=== PATIENT | male | born 1950 | race Caucasian/White ===

== ENCOUNTER → 2017-10-09 | Day surgery (SDC) | payer MEDICARE ==
[~2017-10-09] MED LIST: Propofol 200 MG/20 ML SDV IV ONE
[2017-10-09] MEDS: Lactated Ringers 1,000 ML IV SCH (09:23)
--- NOTE | 2017-10-09 13:12 | OR ---
DATE OF OPERATION: 10/09/2017 PREOPERATIVE DIAGNOSIS: 1. EPIGASTRIC PAIN. 2. CONSTIPATION. POSTOPERATIVE DIAGNOSIS: 1. EPIGASTRIC PAIN. 2. CONSTIPATION. SURGEON: Abdiel Birmingham MD PROCEDURE: 1. ESOPHAGOGASTRODUODENOSCOPY WITH BIOPSY X1, NARENDRA. 2. FULL-LENGTH COLONOSCOPY. ANESTHESIA: SHOE MAKER due to schizophrenic disorder. COMPLICATIONS: None. SPECIMEN: 1. Antral NARENDRA. 2. Duodenal biopsy x1. FINDINGS: 1. Full-length EGD. 2. Mild duodenitis, nonspecific without ulceration. 3. Normal full-length colonoscopy with poor prep. RECOMMENDATIONS: Medical followup pending pathology report. INDICATIONS: The patient was in for a routine physical and was having some issues with constipation and epigastric pain. He is due for a colonoscopy. We elected to proceed with the upper and lower scope. DESCRIPTION OF PROCEDURE: The patient was prepped and draped, placed in the left lateral decubitus position. A lubricated Olympus gastroscope was inserted over a bit and advanced to the cricopharyngeus area and easily intubated in the esophagus. The esophageal lining was benign in its entire course. The Z-line was crisp and sharp at 40 cm. No hernia present. No distal esophagitis, stricturing, ulceration, or Cool's changes. The scope intubated into the stomach through the pylorus and into the second portion of the duodenum. The duodenal bulb did have some mild duodenitis changes and no ulcerations. A biopsy was taken. The scope was brought back into the stomach and retroflexed. The upper fundus and cardia were unremarkable. Upon straightening, thorough evaluation of the rest of the fundus and the antrum. The antrum showed no gross abnormalities, polyps, lesions, or peptic ulcer disease. A NARENDRA test was obtained. Air was then suctioned. The scope was removed without complication. A lubricated Olympus colonoscope was then inserted and easily advanced to the cecum. Direct visualization of the ileocecal valve was accomplished. Bowel prep was poor. There was a lot of stool throughout which was thick and it was hard to suction in many of these areas. Adequate visualization was difficult of the entire colon. Upon withdrawal throughout the length of the colon, I could find no signs of any polyps, masses, ulcerations, bleeding sites, and no vascular abnormalities or signs of colitis. There were no significant diverticula. The rectal vault appeared benign. Retroflexion showed no perianal lesions. Air was suctioned. The scope was removed without complication. PARTH/CELSO /[id number]
== END ==
LOC: CC.SDS 09:01
PROVIDERS: ATTEND Family Medicine
DX: R10.13 Epigastric pain (principal); K59.00 Constipation, unspecified; N40.1 Benign prostatic hyperplasia with lower urinary tract symptoms; N39.43 Post-void dribbling; F20.9 Schizophrenia, unspecified; F32.9 Major depressive disorder, single episode, unspecified; M10.9 Gout, unspecified; E78.5 Hyperlipidemia, unspecified; Z79.899 Other long term (current) drug therapy
CPT/HCPCS: 87081; J2704; J7120

== ENCOUNTER 2018-09-09 12:02 | Inpatient (IN) | payer MEDICARE, OTHER ==
[2018-09-09] MEDS ORDERED: Iopamidol 612 MG/ML 100 ML Bottle IVPUSH ONE (12:16)
[2018-09-09 12:21] LABS: CHLORIDE,CL 104 mEq/L (98-106); SODIUM,NA 142 mEq/L (136-145)
[2018-09-09] MEDS: Clindamycin Phosphate in D5W 300 MG in Premix Bag 1 BAG IV SCH ×4 (14:10→19:48)
[2018-09-09] MEDS ORDERED: Enoxaparin 40 MG/0.4 ML Syringe SUBCUT SCH (14:15)
[2018-09-09] MEDS ORDERED: Acetaminophen 500 MG Tab PO PRN (16:37)
[2018-09-09] MEDS: Ibuprofen 200 MG Tab PO PRN (17:10)
[2018-09-09] MEDS: BENZTROPINE 1 MG PO SCH (19:51)
[2018-09-09] MEDS: SIMVASTATIN 40 MG PO SCH (19:51)
[2018-09-09] MEDS: PAROXETINE 20 MG PO SCH (19:51)
[2018-09-09] MEDS: HALOPERIDOL 1 MG PO SCH (19:51)
[2018-09-10] MEDS: Clindamycin Phosphate in D5W 300 MG in Premix Bag 1 BAG IV SCH ×8 (01:40→19:38)
[2018-09-10] MEDS: **PTOM** Pantoprazole 40 MG Tab.CR PO SCH (07:24)
--- NOTE | 2018-09-10 09:17 | PCM.PN ---
- General Info Date of Service: 09/10/18 Admission Dx/Problem (Free Text): Left Facial Cellulitis Subjective Update: Zuhair is a 67 year old male who was admitted to the hospital from the clinic yesterday 09/09/2018 for left facial cellulitis. He had been to the dentist that morning, who then sent him to us for assessment. He reports he is feeling somewhat better this morning. Reports he has less facial pressure. Outline of redness shows improvement in erythema. Patient continues to have some tenderness to left cheek. Did have low grade temperature yesterday, but has been afebrile through the night. Has been tolerating IV clindamycin without issue. He offers no other complaints this morning. Functional Status: Reports: Pain Controlled, Tolerating Diet, Ambulating, Urinating. Denies: New Symptoms - Review of Systems General: Reports: No Symptoms. Denies: Fever, Fatigue, Chills HEENT: Reports: No Symptoms. Denies: Ear Pain, Eye Pain, Headaches, Sinus Congestion, Sore Throat, Visual Changes Pulmonary: Reports: No Symptoms. Denies: Shortness of Breath, Cough, Sputum, Wheezing Cardiovascular: Reports: No Symptoms. Denies: Chest Pain, Dyspnea on Exertion, Edema, Lightheadedness Gastrointestinal: Reports: No Symptoms. Denies: Abdominal Pain, Decreased Appetite, Diarrhea, Nausea, Vomiting Genitourinary: Reports: No Symptoms. Denies: Dysuria, Frequency, Urgency Musculoskeletal: Reports: No Symptoms Skin: Reports: Other (erythema and swelling to left side of face) Neurological: Reports: Tremors. Denies: Confusion, Dizziness Psychiatric: Reports: No Symptoms - Patient Data Vitals - Most Recent: Last Vital Signs Temp 97.2 F 09/10/18 07:50 Pulse 61 09/10/18 07:50 Resp 20 09/10/18 07:50 BP 159/83 H 09/10/18 07:50 Pulse Ox 98 09/10/18 07:50 Weight - Most Recent: 185 lb I&O - Last 24 Hours: Intake & Output 09/09/18 09/10/18 09/10/18 22:59 06:59 14:59 Intake Total 50 50 Balance 50 50 Lab Results Last 24 Hours: Laboratory Results - last 24 hr 09/09/18 09/09/18 09/10/18 Range/Units 12:06 12:06 07:00 WBC 8.0 4.9 L (5.0-10.0) 10^3/uL RBC 4.68 4.30 L (4.50-6.00) 10^6/uL Hgb 14.8 13.6 L (14.0-18.0) g/dL Hct 41.9 38.7 L (40.0-54.0) % MCV 89.5 90.0 (82.0-94.0) fL MCH 31.6 31.6 (27.0-32.0) pg MCHC 35.3 35.1 (33.0-38.0) g/dL RDW Coeff of Sandra 12.8 12.9 (11.0-15.0) % Plt Count 122 L 84 L (150-400) 10^3/uL Neut % (Auto) 78.9 68.2 (35-85) % Lymph % (Auto) 13.7 20.5 (10-55) % Dickey % (Auto) 6.8 9.3 (0-16) % Eos % (Auto) 0.5 1.8 (0-5) % Baso % (Auto) 0.1 0.2 (0-3) % Neut # (Auto) 6.28 3.36 (1.80-7.00) 10^3/uL Lymph # (Auto) 1.09 1.01 (1.00-4.80) 10^3/uL Dickey # (Auto) 0.54 0.46 (0.00-0.80) 10^3/uL Eos # (Auto) 0.04 0.09 (0.00-0.45) 10^3/uL Baso # (Auto) 0.01 0.01 10^3/uL Sodium 142 (136-145) mEq/L Potassium 3.7 (3.5-5.0) mEq/L Chloride 104 (98-106) mEq/L Carbon Dioxide 31 (21-32) mmol/L BUN 7 (7-18) mg/dL Creatinine 0.8 (0.7-1.3) mg/dL Est Cr Clr Drug Dosing TNP Estimated GFR (MDRD) > 60 (>=60) mL/min Glucose 110 H D (75-99) mg/dL Calcium 8.8 (8.4-10.1) mg/dL C-Reactive Protein 1.0 H (0.2-0.8) mg/dL 09/10/18 Range/Units 07:00 WBC (5.0-10.0) 10^3/uL RBC (4.50-6.00) 10^6/uL Hgb (14.0-18.0) g/dL Hct (40.0-54.0) % MCV (82.0-94.0) fL MCH (27.0-32.0) pg MCHC (33.0-38.0) g/dL RDW Coeff of Sandra (11.0-15.0) % Plt Count (150-400) 10^3/uL Neut % (Auto) (35-85) % Lymph % (Auto) (10-55) % Dickey % (Auto) (0-16) % Eos % (Auto) (0-5) % Baso % (Auto) (0-3) % Neut # (Auto) (1.80-7.00) 10^3/uL Lymph # (Auto) (1.00-4.80) 10^3/uL Dickey # (Auto) (0.00-0.80) 10^3/uL Eos # (Auto) (0.00-0.45) 10^3/uL Baso # (Auto) 10^3/uL Sodium (136-145) mEq/L Potassium (3.5-5.0) mEq/L Chloride (98-106) mEq/L Carbon Dioxide (21-32) mmol/L BUN (7-18) mg/dL Creatinine (0.7-1.3) mg/dL Est Cr Clr Drug Dosing Estimated GFR (MDRD) (>=60) mL/min Glucose (75-99) mg/dL Calcium (8.4-10.1) mg/dL C-Reactive Protein 3.3 H (0.2-0.8) mg/dL Med Orders - Current: Current Medications Acetaminophen (Tylenol Extra Strength) 500 - 1,000 mg PO Q6H PRN PRN Reason: Pain/Fever Benztropine Mesylate (Cogentin) 0.5 mg PO BEDTIME JOSIE Last Admin: 09/09/18 19:51 Dose: 0.5 mg Haloperidol (Haldol) 5 mg PO BEDTIME JOSIE Last Admin: 09/09/18 19:51 Dose: 5 mg Clindamycin Phosphate 300 mg/ (Premix) 50 mls @ 100 mls/hr IV Q6H [facility] Last Admin: 09/10/18 07:24 Dose: 100 mls/hr Ibuprofen (Motrin) 600 mg PO Q6H PRN PRN Reason: Pain/Fever Last Admin: 09/09/18 17:10 Dose: 600 mg Pantoprazole Sodium (Protonix) 40 mg PO DAILY [facility] Last Admin: 09/10/18 07:24 Dose: 40 mg Paroxetine HCl (Paxil) 20 mg PO BEDTIME [facility] Last Admin: 09/09/18 19:51 Dose: 20 mg Simvastatin (Zocor) 40 mg PO BEDTIME [facility] Last Admin: 09/09/18 19:51 Dose: 40 mg Discontinued Medications Enoxaparin Sodium (Lovenox) 40 mg SUBCUT DAILY@1200 [facility] Last Admin: 09/09/18 14:36 Dose: Not Given Iopamidol (Isovue-300 (61%)) 100 ml IVPUSH ONETIME ONE Stop: 09/09/18 12:17 Last Admin: 09/09/18 12:49 Dose: 100 ml - Exam Quality Assessment: DVT Prophylaxis General: Alert, Oriented, No Acute Distress HEENT: Pupils Equal, Pupils Reactive, EOMI, Mucous Membr. Moist/Barling Neck: Supple Lungs: Clear to Auscultation, Normal Respiratory Effort Cardiovascular: Regular Rate, Regular Rhythm GI/Abdominal Exam: Normal Bowel Sounds, Soft, Non-Tender, No Organomegaly, No Distention, No Abnormal Bruit, No Mass, Pelvis Stable Extremities: Normal Inspection, Normal Range of Motion, Non-Tender, No Pedal Edema, Normal Capillary Refill Skin: Warm, Dry, Intact, Other (erythema and swelling to left side of face, marked improvement from 09/09/2018, area of erythema outlined, mild tenderness to left cheek with palpation) Wound/Incisions: No Drainage, Erythema Improving Neurological: No New Focal Deficit Psy/Mental Status: Alert, Normal Affect, Normal Mood - Problem List & Annotations (1) Facial cellulitis SNOMED Code(s): 767918640 Code(s): L03.211 - CELLULITIS OF FACE Status: Acute Current Visit: Yes - Problem List Review Problem List Initiated/Reviewed/Updated: Yes - My Orders Last 24 Hours: My Active Orders 09/09/18 14:00 Clindamycin Phosphate in D5W [Cleocin in D5W] 300 mg Premix Bag 1 bag IV Q6H 09/09/18 14:12 Patient Status [ADT] Routine Oxygen Therapy [RC] .PRN Up ad Jazzmine [RC] .PRN Vital Signs [RC] 0000,0400,0800,1200,1600,2000 Resuscitation Status Routine 09/09/18 14:13 Pulse Oximetry [RC] .PRN 09/09/18 14:45 Antiembolic Devices [RC] 1000,2200 09/09/18 16:37 Acetaminophen [Tylenol Extra Strength] 500 - 1,000 mg PO Q6H PRN 09/09/18 16:39 Ibuprofen [Motrin] 600 mg PO Q6H PRN 09/09/18 20:00 Benztropine [Cogentin] 0.5 mg PO BEDTIME Haloperidol [Haldol] 5 mg PO BEDTIME PARoxetine [Paxil] 20 mg PO BEDTIME Simvastatin [Zocor] 40 mg PO BEDTIME 09/09/18 Dinner Regular Diet [DIET] 09/10/18 08:00 Pantoprazole [ProTONIX] 40 mg PO DAILY - Assessment Assessment:: Left Sided Facial Cellulitis - Plan Plan:: WBC improved to 4.9 today. CRP increased from 1.0 to 3.3. Has been afebrile throughout the night. Erythema and swelling improved from yesterday. Patient reports less pressure and pain to left side of face. Will continue with IV clindamycin. Anticipate discharge home tomorrow on oral antibiotics. Dr. Birmingham saw and examined patient and is agreeable with plan.
[2018-09-10] MEDS: HALOPERIDOL 1 MG PO SCH (19:39)
[2018-09-10] MEDS: SIMVASTATIN 40 MG PO SCH (19:39)
[2018-09-10] MEDS: PAROXETINE 20 MG PO SCH (19:39)
[2018-09-10] MEDS: BENZTROPINE 1 MG PO SCH (19:39)
[2018-09-10] MEDS: Ibuprofen 200 MG Tab PO PRN (20:59)
[2018-09-11] MEDS: Clindamycin Phosphate in D5W 300 MG in Premix Bag 1 BAG IV SCH ×8 (01:00→19:56)
[2018-09-11] MEDS: **PTOM** Pantoprazole 40 MG Tab.CR PO SCH (07:56)
--- NOTE | 2018-09-11 14:17 | PN ---
DATE: 09/11/2018 S: Zuhair is a 67-year-old male who was admitted to the hospital on the 09/09 with concerns of left facial cellulitis. He underwent a CT scan at that time that did not show any periorbital cellulitis. He was at the dentist that morning in which they did send him over for further evaluation. He has made significant improvement with some redness to the left maxillary and zygomatic arch area. He states that he ended up having a fall yesterday evening, did not lose consciousness; however, it was unwitnessed. Nursing staff did do neuro checks q.15 minutes and then went to every hour in which through the night, they did not notice any changes per se. He states that he does not really have any headaches today. He has little bit tenderness in the left temporal area. Nursing staff was concerned that he does have some unsteady gait. However, he does have a strong past neurological history with a previous history of stroke. Otherwise, he states overall he is feeling well. He has no complaints. No vision changes. No other neurological deficits or any changes during his time in the emergency room. O: VITAL SIGNS: Blood pressure is 142/86; temp of 97.3, respirations 20, O2 is 97% on room air with a pulse of 69. GENERAL: Pleasant, cooperative male. He is answering all questions appropriately. He is sitting in a recliner, having normal conversation with me. HEENT: Head does appear to be normocephalic. He does have a little bit of tenderness on the left scientologist area with palpation. I do not feel any deficits per se. Eyes: Extraocular movements are intact and full. Pupils are equal, round, and reactive to light. Nasal mucosa is pink and moist. Oral mucosa is pink and moist. Speech is fluent. He does have a little bit of right lip droop, which is the patient's baseline. LUNGS: Clear to auscultation. I did not hear any adventitious sounds. NECK: Supple. No lymphadenopathy. No midline tenderness. CARDIAC: Regular rate and rhythm. No murmurs are noted. EXTREMITIES: No pedal edema is noted. SKIN: Significant improvement of cellulitis of the left side of the face. There is very minimal redness noted. No warmth to the area. Mild tenderness with palpation. ASSESSMENT: 1. LEFT FACIAL CELLULITIS. 2. FALL. P: We will continue with acute stay at this point in time. We will continue with IV antibiotics. We will get a CT scan of the head to rule out any intracranial condition, secondary to his recent fall. I did discuss with Zuhair, possibly if everything looks okay, then we will look at discharge tomorrow which he is in complete agreement. WARNER/CESLO /[id number]
[2018-09-11] MEDS: PAROXETINE 20 MG PO SCH (19:57)
[2018-09-11] MEDS: HALOPERIDOL 1 MG PO SCH (19:57)
[2018-09-11] MEDS: BENZTROPINE 1 MG PO SCH (19:57)
[2018-09-11] MEDS: SIMVASTATIN 40 MG PO SCH (19:57)
[2018-09-12] MEDS: Clindamycin Phosphate in D5W 300 MG in Premix Bag 1 BAG IV SCH ×4 (01:37→08:00)
[2018-09-12] MEDS: **PTOM** Pantoprazole 40 MG Tab.CR PO SCH (07:55)
--- NOTE | 2018-09-12 10:44 | PCM.DCSUM1 ---
Discharge Summary - Hospital Course HPI Initial Comments: Pt was admitted for facial cellulitis and has been on IV clindamycin. Has been improving and swelling has gone down significantly. Diagnosis: Stroke: No Modified Russel Scale: No Symptoms at All Modified [place] Scale Score: 0 - Discharge Data Discharge Date: 09/12/18 Discharge Disposition: Home, Self-Care 01 Condition: Good - Patient Summary/Data Operative Procedure(s) Performed: none Labs Pending at D/C: none Hospital Course: pt was admitted for facial cellulitis and has been doing well. IV clindamycin was started and the swelling has gone down significantly. He denies any pain and is up and around in halls. - Patient Instructions Diet: Regular Diet as Tolerated Activity: As Tolerated Notify Provider of: Fever, Increased Pain, Swelling and Redness, Drainage - Discharge Plan *PRESCRIPTION DRUG MONITORING PROGRAM REVIEWED*: Not Applicable *COPY OF PRESCRIPTION DRUG MONITORING REPORT IN PATIENT LAXMI: Not Applicable Home Medications: Home Meds Benztropine Mesylate 0.5 mg PO BEDTIME 01/29/14 [History] Haloperidol 5 mg PO BEDTIME 01/29/14 [History] PARoxetine HCl [Paroxetine HCl] 20 mg PO BEDTIME 01/29/14 [History] Simvastatin 40 mg PO BEDTIME 01/29/14 [History] Pantoprazole Sodium 40 mg PO DAILY 08/12/18 [History] Oxygen Therapy Mode: Room Air - Discharge Summary/Plan Comment DC Time >30 min.: Yes - General Info Date of Service: 09/12/18 Functional Status: Reports: Pain Controlled - Review of Systems General: Denies: Fever, Weakness HEENT: Reports: Other (mild swelling to the left cheek.) Pulmonary: Reports: No Symptoms Cardiovascular: Reports: No Symptoms Gastrointestinal: Reports: No Symptoms Musculoskeletal: Reports: No Symptoms - Patient Data Vitals - Most Recent: Last Vital Signs Temp 98.7 F 09/12/18 08:00 Pulse 76 09/12/18 08:00 Resp 20 09/12/18 08:00 BP 157/84 H 09/12/18 08:00 Pulse Ox 97 09/12/18 08:00 Weight - Most Recent: 185 lb I&O - Last 24 hours: Intake & Output 09/11/18 09/12/18 09/12/18 22:59 06:59 14:59 Intake Total 50 50 Balance 50 50 Med Orders - Current: Current Medications Acetaminophen (Tylenol Extra Strength) 500 - 1,000 mg PO Q6H PRN PRN Reason: Pain/Fever Last Admin: 09/10/18 19:40 Dose: 1,000 mg Benztropine Mesylate (Cogentin) 0.5 mg PO BEDTIME [facility] Last Admin: 09/11/18 19:57 Dose: 0.5 mg Haloperidol (Haldol) 5 mg PO BEDTIME JOSIE Last Admin: 09/11/18 19:57 Dose: 5 mg Clindamycin Phosphate 300 mg/ (Premix) 50 mls @ 100 mls/hr IV Q6H JOSIE Last Admin: 09/12/18 08:00 Dose: 100 mls/hr Ibuprofen (Motrin) 600 mg PO Q6H PRN PRN Reason: Pain/Fever Last Admin: 09/10/18 20:59 Dose: 600 mg Pantoprazole Sodium (Protonix) 40 mg PO DAILY [facility] Last Admin: 09/12/18 07:55 Dose: 40 mg Paroxetine HCl (Paxil) 20 mg PO BEDTIME [facility] Last Admin: 09/11/18 19:57 Dose: 20 mg Simvastatin (Zocor) 40 mg PO BEDTIME [facility] Last Admin: 09/11/18 19:57 Dose: 40 mg Discontinued Medications Enoxaparin Sodium (Lovenox) 40 mg SUBCUT DAILY@1200 [facility] Last Admin: 09/09/18 14:36 Dose: Not Given Iopamidol (Isovue-300 (61%)) 100 ml IVPUSH ONETIME ONE Stop: 09/09/18 12:17 Last Admin: 09/09/18 12:49 Dose: 100 ml - Exam General: Reports: Alert, Oriented HEENT: Reports: Other (mild swelling that is not painful or warm or red to the left side of cheek. States that it is much less than previously noted.) Neck: Reports: Supple Lungs: Reports: Clear to Auscultation, Normal Respiratory Effort Cardiovascular: Reports: Regular Rate, Regular Rhythm GI/Abdominal Exam: Normal Bowel Sounds, Soft, Non-Tender Extremities: No Pedal Edema, Normal Capillary Refill Skin: Reports: Warm, Dry Neurological: Reports: No New Focal Deficit Psy/Mental Status: Reports: Alert, Normal Affect
[2018-09-12] MEDS ORDERED: Take Home: Clindamycin HCl 150 MG Cap, 6 Cap Pack PO ONE (12:18)
[2018-09-12] MEDS ORDERED: Clindamycin HCl 150 MG Cap PO ONE (13:24)
== END 2018-09-12 13:25 | disposition home or self-care (01) | DRG 603 ==
LOC: CC.MS 12:02 → UNDOADMOB 12:02 → OBSVTOIN 14:12 → CC.MS 14:12 → INTOOBSV 14:12 → OBSVTOIN 09-11 16:17 → UNDODISIN 09-12 13:25
PROVIDERS: ADMIT Nurse Practitioner Family; ATTEND Family Medicine
DX: L03.211 Cellulitis of face (principal); E78.5 Hyperlipidemia, unspecified; K04.7 Periapical abscess without sinus; F20.9 Schizophrenia, unspecified; R26.81 Unsteadiness on feet; Z90.49 Acquired absence of other specified parts of digestive tract; Z87.891 Personal history of nicotine dependence
CPT/HCPCS: 36415; 70450; 70487; 80048; 85025; 86140; 96365; 96366; 96376; 99219; 99225; A9270-GY; G0378; G0379; J3490; Q9967

== ENCOUNTER 2018-11-09 11:26 | Emergency (ER) | payer MEDICARE, OTHER ==
--- NOTE | 2018-11-09 12:53 | EDM.PDOC ---
ED HPI GENERAL MEDICAL PROBLEM - General Chief Complaint: General Stated Complaint: TROUBLE W/BALANCE Time Seen by Provider: 11/09/18 11:40 Source of Information: Reports: Patient, Family History Limitations: Reports: No Limitations - History of Present Illness INITIAL COMMENTS - FREE TEXT/NARRATIVE: Zuhair is a 68 year old male who presents to the ED with family with complaints of ongoing unsteady gait. Family report that he was walking from his apartment across town to the grocery store this morning when she came upon him on his walk back. She reports he was barely able to walk and was so weak he was almost falling to his knees. She reports he was in tears stating that "nobody cares about him enough to even stop and help when he can't even walk." He reports he is scared to drive so quit driving about 2 weeks ago. Reports he needed to get groceries so attempted to walk to grocery store. He reports that he feels better after resting. This occurred about 4 hours prior to ED presentation. Family report they then took him to [facility] to see what services they could get and they recommended he be seen and evaluated. He has had prior workup for unsteady gait, including Lexiscan, Ct head, MRI brain. Does have schizophrenia as well as TBI a number of years ago. He has had ongoing tremors of BUE. Feels these are at baseline, where they have been for a number of years. Denies any pain and does not offer any complaints. Duration: Resolved Prior to Arrival Location: Reports: Generalized Associated Symptoms: Reports: Weakness. Denies: Confusion, Chest Pain, Cough, cough w sputum, Diaphoresis, Fever/Chills, Headaches, Loss of Appetite, Malaise , Nausea/Vomiting, Rash, Seizure, Shortness of Breath, Syncope - Related Data Allergies Allergy/AdvReac Type Severity Reaction Status Date / Time dust Allergy Sneezing Uncoded 11/09/18 11:41 Home Meds: Home Meds Benztropine Mesylate 0.5 mg PO BEDTIME 01/29/14 [History] Haloperidol 5 mg PO BEDTIME 01/29/14 [History] PARoxetine HCl [Paroxetine HCl] 20 mg PO BEDTIME 01/29/14 [History] Simvastatin 40 mg PO BEDTIME 01/29/14 [History] Pantoprazole Sodium 40 mg PO DAILY 08/12/18 [History] Clindamycin HCl 300 mg PO QID PRN 11/09/18 [History] Fenofibrate 160 mg PO DAILY 11/09/18 [History] Past Medical History Cardiovascular History: Reports: High Cholesterol, [place] Gastrointestinal History: Reports: GERD Musculoskeletal History: Reports: Other (See Below) Other Musculoskeletal History: tremors Neurological History: Reports: Brain Injury, TIA Other Neuro History: Brain injury at age 3 Psychiatric History: Reports: Depression, Schizophrenia - Past Surgical History GI Surgical History: Reports: Appendectomy Social & Family History - Tobacco Use Smoking Status *Q: Former Smoker Used Tobacco, but Quit: Yes Month/Year Tobacco Last Used: 30 - Caffeine Use Caffeine Use: Reports: Coffee ED ROS GENERAL - Review of Systems Review Of Systems: ROS reveals no pertinent complaints other than HPI. ED EXAM, GENERAL - Physical Exam Exam: See Below Exam Limited By: No Limitations General Appearance: Alert, WD/WN, No Apparent Distress Eye Exam: Bilateral Eye: EOMI, Normal Fundi, Normal Inspection, PERRL Head: Atraumatic, Normocephalic Neck: Normal Inspection, Supple, Non-Tender, Full Range of Motion Respiratory/Chest: No Respiratory Distress, Lungs Clear, Normal Breath Sounds, No Accessory Muscle Use, Chest Non-Tender Cardiovascular: Normal Peripheral Pulses, Regular Rate, Rhythm, No Edema, No Gallop, No JVD, No Murmur, No Rub Peripheral Pulses: 2+: Radial (L), Radial (R), Dorsalis Pedis (L), Dorsalis Pedis (R) GI/Abdominal: Normal Bowel Sounds, Soft, Non-Tender, No Organomegaly, No Distention, No Abnormal Bruit, No Mass Back Exam: Normal Inspection, Full Range of Motion, NT Extremities: Normal Inspection, Normal Range of Motion, Non-Tender, No Pedal Edema, Normal Capillary Refill, Other (resting tremor BUE) Neurological: Alert, Oriented, CN II-XII Intact, Normal Cognition, Normal Gait ( steady in ED), Normal Reflexes, No Motor/Sensory Deficits Psychiatric: Anxious Skin Exam: Warm, Dry, Intact, Normal Color, No Rash Lymphatic: No Adenopathy Course - Vital Signs Last Recorded V/S: Last Vital Signs Temp 97.3 F 11/09/18 11:34 Pulse 90 11/09/18 11:34 Resp 18 11/09/18 11:34 BP 138/84 11/09/18 11:34 Pulse Ox 99 11/09/18 11:34 - Orders/Labs/Meds Orders: Active Orders 24 hr Category Date Time Status TSH REFLEX TO FREE T4 [CHEM] Stat Lab 11/09/18 11:45 Received Labs: Laboratory Tests 11/09/18 11/09/18 11/09/18 Range/Units 11:37 11:45 11:45 WBC 6.2 (5.0-10.0) 10^3/uL RBC 4.96 (4.50-6.00) 10^6/uL Hgb 15.5 (14.0-18.0) g/dL Hct 43.2 (40.0-54.0) % MCV 87.1 (82.0-94.0) fL MCH 31.3 (27.0-32.0) pg MCHC 35.9 (33.0-38.0) g/dL RDW Coeff of Sandra 13.0 (11.0-15.0) % Plt Count 147 L (150-400) 10^3/uL Neut % (Auto) 71.5 (35-85) % Lymph % (Auto) 19.8 (10-55) % Dickenson % (Auto) 8.1 (0-16) % Eos % (Auto) 0.6 (0-5) % Baso % (Auto) 0 (0-3) % Neut # (Auto) 4.44 (1.80-7.00) 10^3/uL Lymph # (Auto) 1.23 (1.00-4.80) 10^3/uL Dickenson # (Auto) 0.50 (0.00-0.80) 10^3/uL Eos # (Auto) 0.04 (0.00-0.45) 10^3/uL Baso # (Auto) 0.00 10^3/uL POC Sodium 139 (138-146) mmol/L POC Potassium 4.0 (3.5-4.9) mmol/L POC Chloride 102 (98-109) mmol/L POC Total CO2 21 (21-32) mmol/L POC BUN 15 (8-26) mg/dL POC Creatinine 1.1 (0.6-1.3) mg/dL POC Glucose 87 (70-99) mg/dL POC WB Ioniz Calcium 1.3 (1.12-1.32) Urine Color Yellow (YELLOW) Urine Appearance Clear (CLEAR) Urine pH 6.5 (4.5-8.0) Ur Specific [place] 1.010 (1.003-1.020) Urine Protein Negative (NEGATIVE) mg/dL Urine Glucose (UA) Negative (NEGATIVE) mg/dL Urine Ketones Negative (NEGATIVE) mg/dL Urine Occult Blood Trace-intact H (NEGATIVE) Urine Nitrite Negative (NEGATIVE) Urine Bilirubin Negative (NEGATIVE) Urine Urobilinogen 0.2 (0.2-1.0) EU/dL Ur Leukocyte Esterase Negative (NEGATIVE) Urine RBC 0-5 (0-5) /HPF Urine WBC Not seen (0-5) /HPF - Re-Assessments/Exams Free Text/Narrative Re-Assessment/Exam: Discussed normal lab workup with patient and family. Recommended PT evaluation for balance. Apparently was set up by Dr. Birmingham back in September to be seen by PT but patient never came to appointment. Discussed services available to patient in our area. Family reports they would like him to ride the Transit and get Meals on Wheels. Departure - Departure Time of Disposition: 12:41 Disposition: Home, Self-Care 01 Condition: Good Clinical Impression: Unsteady gait, Tremor of both hands - Discharge Information *PRESCRIPTION DRUG MONITORING PROGRAM REVIEWED*: Not Applicable *COPY OF PRESCRIPTION DRUG MONITORING REPORT IN PATIENT LAXMI: Not Applicable Instructions: Fall Prevention in the Home, Adult, [id number] Referrals: PCP,Unknown [Primary Care Provider] - Forms: ED Department Discharge Additional Instructions: - Avoid walking long distances - Follow up with Physical Therapy tomorrow 11/10/2018 at 10 am for balance assessment - Family/[facility] to arrange for Meals on Wheels and Transit Bus - Follow up with Dr. Birmingham for recheck if symptoms worsen or do not improve - My Orders Last 24 Hours: My Active Orders 11/09/18 11:45 TSH REFLEX TO FREE T4 [CHEM] Stat - Assessment/Plan Last 24 Hours: My Active Orders 11/09/18 11:45 TSH REFLEX TO FREE T4 [CHEM] Stat
== END 2018-11-09 12:50 | disposition home or self-care (01) ==
LOC: CC.ED 11:26
DX: R25.1 Tremor, unspecified (principal); R26.81 Unsteadiness on feet; I25.2 Old myocardial infarction; K21.9 Gastro-esophageal reflux disease without esophagitis; Z79.899 Other long term (current) drug therapy; Z86.73 Personal history of transient ischemic attack (TIA), and cerebral infarction without residual deficits; Z90.49 Acquired absence of other specified parts of digestive tract; Z91.09 Other allergy status, other than to drugs and biological substances; Z87.891 Personal history of nicotine dependence
CPT/HCPCS: 36415; 80047; 81001; 84439; 84443; 85025; 93005; 99284

== ENCOUNTER 2020-12-13 01:31 | Observation (INO) | payer MEDICARE ==
[2020-12-13 02:20] LABS: CHLORIDE,CL 104 mEq/L (98-106); SODIUM,NA 144 mEq/L (136-145)
--- NOTE | 2020-12-13 02:32 | EDM.PDOC ---
ED HPI GENERAL MEDICAL PROBLEM - General Chief Complaint: General Stated Complaint: shaking Time Seen by Provider: 12/13/20 02:00 Source of Information: Reports: Patient, EMS, RN History Limitations: Reports: Altered Mental Status - History of Present Illness INITIAL COMMENTS - FREE TEXT/NARRATIVE: Pt was brought in by EMS after being called by law enforcement. They found him either in the gutter or wandering the street. Pt has history of schizophrenia. He states that he has not taken his evening meds yet. He isn't sure when he took them last. He denies any pain. 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 He is not able to give me history on himself and relates that Dr. Birmingham is his psychiatrist. He remembers that he saw him recently but doesn't remember why. He is very cooperative but his story doesn't all come together. I think he lives in [facility] by himself. When EMS picked him up his BP was 250/ 110. He is talking to himself at times and does not make sense. When reviewing his clinic chart he has never had high BP in the past. When in the ER his BP was 211/110. He is not on any antihypertensives. He denied any chest pain or headaches. States that he can't tell me anything. Requesting to speak to Dr. Birmingham. Onset: Gradual - Related Data Allergies Allergy/AdvReac Type Severity Reaction Status Date / Time dust Allergy Sneezing Uncoded 12/13/20 01:50 Home Meds: Home Meds Benztropine Mesylate 0.5 mg PO BEDTIME 01/29/14 [History] PARoxetine HCl [Paroxetine HCl] 20 mg PO BEDTIME 01/29/14 [History] Simvastatin 40 mg PO BEDTIME 01/29/14 [History] haloperidoL [Haloperidol] 5 mg PO BEDTIME 01/29/14 [History] Pantoprazole Sodium 40 mg PO DAILY 08/12/18 [History] Past Medical History Cardiovascular History: Reports: High Cholesterol, SD Gastrointestinal History: Reports: GERD Musculoskeletal History: Reports: Other (See Below) Other Musculoskeletal History: tremors Neurological History: Reports: Brain Injury, TIA Other Neuro History: Brain injury at age 3 Psychiatric History: Reports: Depression, Schizophrenia - Past Surgical History GI Surgical History: Reports: Appendectomy Social & Family History - Caffeine Use Caffeine Use: Reports: Coffee - Living Situation & Occupation Living situation: Reports: Single, Alone Occupation: Retired ED ROS GENERAL - Review of Systems Review Of Systems: See Below Constitutional: Denies: Fever, Chills, Weakness HEENT: Reports: No Symptoms Respiratory: Reports: No Symptoms Cardiovascular: Reports: No Symptoms GI/Abdominal: Reports: No Symptoms : Reports: No Symptoms Musculoskeletal: Reports: No Symptoms Skin: Reports: No Symptoms Neurological: Denies: Dizziness, Headache, Numbness, Tingling Psychiatric: Reports: Confusion, Other (very cooperative and pleasant. No concept of time and what day or time it is. He talks to himself. He is able to tell me where he lives. Feels that he was patrolling the streets to help cdl program coordinator out.) ED EXAM, GENERAL - Physical Exam Exam: See Below Exam Limited By: Altered Mental Status General Appearance: Alert, WD/WN, No Apparent Distress Eye Exam: Right Eye: Other (right eye lid does droop and he states that it has for many years.) Ears: Normal External Exam, Normal Canal, Normal TMs Throat/Mouth: Normal Inspection, Normal Oropharynx, Normal Voice, No Airway Compromise Head: Atraumatic, Normocephalic Neck: Normal Inspection, Supple, Non-Tender Respiratory/Chest: No Respiratory Distress, Lungs Clear, Normal Breath Sounds Cardiovascular: Normal Peripheral Pulses, Regular Rate, Rhythm, No Edema GI/Abdominal: Normal Bowel Sounds, Soft, Non-Tender Extremities: Normal Inspection, Normal Range of Motion, No Pedal Edema, Normal Capillary Refill, Other (Has twitching to both upper extremities. This has been documented at prevoius visits. Is not new for him.) Neurological: Alert, Confused, Disoriented. No: Oriented Skin Exam: Warm, Dry, Intact Course - Vital Signs Last Recorded V/S: Last Vital Signs Temp 97.3 F 12/13/20 12:00 Pulse 63 12/13/20 12:00 Resp 16 12/13/20 12:00 BP 130/80 12/13/20 12:00 Pulse Ox 97 12/13/20 12:00 - Orders/Labs/Meds Orders: Medication Orders Enoxaparin Sodium (Enoxaparin 40 Mg/0.4 Ml Syringe) 40 mg SUBCUT Q24H JOSIE Metoprolol Tartrate (Metoprolol Tartrate 25 Mg Tab) 25 mg PO Q12H JOSIE Benztropine Mesylate 0.5 Mg Tablet Ptom 0.5 mg PO BEDTIME JOSIE Haloperidol 5 Mg (Tablet Ptom) 5 mg PO BEDTIME JOSIE Pantoprazole Sodium (Pantoprazole 40 Mg Tab.Cr Ptom) 40 mg PO ACBREAKFAST JOSIE Paroxetine HCl (Paroxetine 20 Mg Tab Ptom) 20 mg PO BEDTIME JOSIE Potassium Chloride (Potassium Chloride 10 Meq Tab.Er) 20 meq PO BIDMEALS JOSIE Simvastatin (Simvastatin 40 Mg Tab Ptom) 40 mg PO BEDTIME JOSIE Sodium Chloride (Sodium Chloride 0.9% 10 Ml Syringe) 10 ml FLUSH ASDIRECTED PRN PRN Reason: Keep Vein Open Labs: Laboratory Tests 12/13/20 12/13/20 Range/Units 01:55 01:55 WBC 5.4 (4.0-11.0) 10^3/uL RBC 4.43 L (4.50-6.00) x10^6/uL Hgb 13.9 L (14.0-18.0) g/dL Hct 39.1 L (42.0-52.0) % MCV 88.3 (83.0-97.0) fL MCH 31.4 (27.0-32.0) pg MCHC 35.5 (32.0-36.0) g/dL RDW Coeff of Sandra 12.5 (11.0-15.0) % Plt Count 120 L (150-400) 10^3/uL Immature Gran % (Auto) 0.2 (0.0-4.9) % Neut % (Auto) 69.9 (41-71) % Lymph % (Auto) 20.4 L (24-44) % [place] % (Auto) 8.7 (0-10) % Eos % (Auto) 0.4 (0-6) % Baso % (Auto) 0.4 (0-1) % Neut # (Auto) 3.76 (1.80-8.00) x10^3/uL Lymph # (Auto) 1.10 (0.60-5.00) 10^3/uL [place] # (Auto) 0.47 (0.00-1.50) 10^3/uL Eos # (Auto) 0.02 (0.00-1.50) 10^3/uL Baso # (Auto) 0.02 (0.00-0.50) 10^3/uL Immature Gran # (Auto) 0.01 (0.00-0.49) 10^3/uL Sodium 144 (136-145) mEq/L Potassium 2.9 L* D (3.5-5.0) mEq/L Chloride 104 (98-106) mEq/L Carbon Dioxide 24 (21-32) mmol/L BUN 18 (7-18) mg/dL Creatinine 1.1 (0.7-1.3) mg/dL Est Cr Clr Drug Dosing TNP Estimated GFR (MDRD) > 60 (>=60) mL/min Glucose 103 H D (75-99) mg/dL Calcium 9.4 (8.4-10.1) mg/dL Total Bilirubin 2.0 H (0.0-1.0) mg/dL AST 34 (15-37) U/L ALT 28 (12-78) U/L Alkaline Phosphatase 57 (46-116) U/L Total Protein 7.2 (6.4-8.2) g/dL Albumin 4.2 (3.4-5.0) g/dL Meds: Medications Generic Name Dose Route Start Last Admin Trade Name Freq PRN Reason Stop Dose Admin Enoxaparin Sodium 40 mg 12/13/20 20:00 Enoxaparin 40 Mg/0.4 Ml Syringe SUBCUT Q24H JOSIE Metoprolol Tartrate 25 mg 12/13/20 20:00 Metoprolol Tartrate 25 Mg Tab PO Q12H JOSIE Benztropine Mesylate 0.5 mg 12/13/20 20:00 0.5 Mg Tablet PO Ptom BEDTIME JOSIE Haloperidol 5 Mg 5 mg 12/13/20 20:00 Tablet Ptom PO BEDTIME JOSIE Pantoprazole Sodium 40 mg 12/14/20 07:00 Pantoprazole 40 Mg Tab.Cr Ptom PO ACBREAKFAST JOSIE Paroxetine HCl 20 mg 12/13/20 20:00 Paroxetine 20 Mg Tab Ptom PO BEDTIME JOSIE Potassium Chloride 20 meq 12/13/20 17:30 Potassium Chloride 10 Meq Tab.Er PO BIDMEALS JOSIE Simvastatin 40 mg 12/13/20 20:00 Simvastatin 40 Mg Tab Ptom PO BEDTIME JOSIE Sodium Chloride 10 ml 12/13/20 02:58 Sodium Chloride 0.9% 10 Ml Syringe FLUSH ASDIRECTED PRN Keep Vein Open Discontinued Medications Generic Name Dose Route Start Last Admin Trade Name Freq PRN Reason Stop Dose Admin Clonidine HCl 0.1 mg 12/13/20 03:15 12/13/20 03:35 Clonidine 0.1 Mg Tab PO 12/13/20 03:16 0.1 mg NOW ONE Administration Enoxaparin Sodium 30 mg 12/13/20 03:00 12/13/20 03:36 Enoxaparin 30 Mg/0.3 Ml Syringe SUBCUT 30 mg Q24H JOSIE Administration Fenofibrate 160 mg 12/13/20 08:00 12/13/20 07:25 Fenofibrate 160 Mg Tab PO 160 mg DAILY JOSIE Administration Potassium Chloride 20 meq/ 100 mls @ 25 mls/hr 12/13/20 03:01 12/13/20 03:41 Premix IV 12/13/20 07:00 25 mls/hr ONETIME ONE Administration Potassium Chloride 40 meq/ 100 mls @ 25 mls/hr 12/13/20 10:00 12/13/20 10:02 Premix IV 12/13/20 13:59 25 mls/hr ONETIME ONE Administration Metoprolol Tartrate 25 mg 12/13/20 10:00 12/13/20 10:01 Metoprolol Tartrate 25 Mg Tab PO 12/13/20 10:01 25 mg ONETIME ONE Administration Pantoprazole Sodium 40 mg 12/13/20 07:00 12/13/20 07:24 Pantoprazole 40 Mg Tab.Cr PO 40 mg ACBREAKFAST JOSIE Administration - Re-Assessments/Exams Free Text/Narrative Re-Assessment/Exam: 12/13/20 02:40 Labs show hypokalemia and BP is still elevated. Departure - Departure Time of Disposition: 02:49 Disposition: Refer to Observation Condition: Fair Clinical Impression: Hypokalemia, Tremor of both hands, Chronic schizophrenia Hypertension Qualifiers: Hypertension type: primary hypertension Qualified Code(s): I10 - Essential (primary) hypertension - Discharge Information *PRESCRIPTION DRUG MONITORING PROGRAM REVIEWED*: Not Applicable *COPY OF PRESCRIPTION DRUG MONITORING REPORT IN PATIENT LAXMI: Not Applicable - Problem List & Annotations (1) Hypertension SNOMED Code(s): 90579984 Code(s): I10 - ESSENTIAL (PRIMARY) HYPERTENSION Status: Acute Priority: High Current Visit: Yes Qualifiers: Hypertension type: primary hypertension Qualified Code(s): I10 - Essential (primary) hypertension (2) Hypokalemia SNOMED Code(s): 85968082 Code(s): E87.6 - HYPOKALEMIA Status: Acute Priority: High Current Visit: Yes (3) Tremor of both hands SNOMED Code(s): 659349978, 228935977 Code(s): R25.1 - TREMOR, UNSPECIFIED Status: Chronic Priority: Low Current Visit: Yes (4) Chronic schizophrenia SNOMED Code(s): 03954005 Code(s): F20.9 - SCHIZOPHRENIA, UNSPECIFIED Status: Chronic Priority: Low Current Visit: Yes - Problem List Review Problem List Initiated/Reviewed/Updated: Yes - Assessment/Plan Plan: Pt will be admitted observation to Dr. Birmingham. He will be given dose of clonidine to bring his BP down and will monitor. Will give KCL 20 meq IV and recheck labs in the morning.
[2020-12-13] MEDS ORDERED: Sodium Chloride 0.9% 10 ML Syringe FLUSH PRN (02:58)
[2020-12-13] MEDS ORDERED: Enoxaparin 30 MG/0.3 ML Syringe SUBCUT SCH (03:00)
[2020-12-13] MEDS ORDERED: Potassium Chloride 20 MEQ in Premix Bag 1 BAG IV ONE (03:01)
[2020-12-13] MEDS ORDERED: cloNIDine 0.1 MG Tab PO ONE (03:15)
[2020-12-13 06:50] LABS: AMPHETAMINES,URINE NEGATIVE (NEGATIVE); BARBITURATES,URINE NEGATIVE (NEGATIVE); BENZODIAZEPINE,URINE NEGATIVE (NEGATIVE); MDMA (ECSTASY), URINE NEGATIVE (NEGATIVE); METHADONE,URINE NEGATIVE (NEGATIVE); METHAMPHETAMINES,URINE NEGATIVE (NEGATIVE); OPIATES,URINE NEGATIVE (NEGATIVE); OXYCODONE,URINE NEGATIVE (NEGATIVE); PHENCYCLIDINE,URINE NEGATIVE (NEGATIVE); TCA,URINE NEGATIVE (NEGATIVE)
[2020-12-13] MEDS ORDERED: Pantoprazole 40 MG Tab.CR PO SCH (07:00)
[2020-12-13 07:25] LABS: CHLORIDE,CL 108 mEq/L (98-106); SODIUM,NA 143 mEq/L (136-145)
[2020-12-13] MEDS ORDERED: Fenofibrate 160 MG Tab PO SCH (08:00)
[2020-12-13] MEDS ORDERED: Take Home: Pantoprazole 40 MG Tab.CR, 1 Tab Pack PO SCH (08:00)
[2020-12-13] MEDS ORDERED: Metoprolol Tartrate 25 MG Tab PO ONE (10:00)
[2020-12-13] MEDS ORDERED: Potassium Chloride Riders 40 MEQ in Premix Bag 1 BAG IV ONE (10:00)
--- NOTE | 2020-12-13 12:53 | PN ---
DATE: 12/13/2020 S: Mr. Bates is a 70-year-old male admitted last night for hypokalemia. He was tremulous and having an elevated blood pressure. Denied any chest pain or shortness of breath. Fabi admitted him and gave him 1 dose of 20 mEq of KCl. Otherwise, he really has not had any other symptoms. O: GENERAL: When I examine him, he is pleasant, cooperative, appears in no distress. HEENT: Benign. NECK: Veins were nondistended. LUNGS: Sounds are clear. CARDIAC: Tones are regular. ABDOMEN: Soft and nontender. EXTREMITIES: He has no peripheral edema. He has some tremors to the right upper extremity. ASSESSMENT: 1. HYPOKALEMIA. 2. HYPERTENSION. 3. SCHIZOPHRENIA. 4. RIGHT UPPER EXTREMITY TREMORS WITH KNOWN HISTORY OF TARDIVE DYSKINESIA. P: We will get a magnesium level. One was not drawn on admit. We will continue to give IV potassium and start him on an oral dose as well. I am going to put him on metoprolol for his blood pressure today and see how he responds. Once we get his electrolyte abnormalities back in order, he should be stable for outpatient management. PARTH/CELSO /[id number]
[2020-12-13 15:51] LABS: CHLORIDE,CL 108 mEq/L (98-106); SODIUM,NA 142 mEq/L (136-145)
[2020-12-13] MEDS: Potassium Chloride 10 MEQ Tab.ER PO SCH (17:58)
[2020-12-13] MEDS ORDERED: PARoxetine 20 MG Tab **PTOM PO SCH (20:00)
[2020-12-13] MEDS ORDERED: HALOPERIDOL 5 MG PO SCH (20:00)
[2020-12-13] MEDS ORDERED: BENZTROPINE MESYLATE 0.5 MG PO SCH (20:00)
[2020-12-13] MEDS ORDERED: Simvastatin 40 MG Tab **PTOM PO SCH (20:00)
[2020-12-13] MEDS ORDERED: Enoxaparin 40 MG/0.4 ML Syringe SUBCUT SCH (20:00)
[2020-12-13] MEDS: Metoprolol Tartrate 25 MG Tab PO SCH (20:32)
[2020-12-14] MEDS ORDERED: Pantoprazole 40 MG Tab.CR **PTOM PO SCH (07:00)
[2020-12-14] MEDS: Metoprolol Tartrate 25 MG Tab PO SCH (07:58)
[2020-12-14] MEDS: Potassium Chloride 10 MEQ Tab.ER PO SCH (07:58)
[2020-12-14] MEDS ORDERED: Lanolin/Mineral Oil/NaCl/Petrolatum Lotion 177 ML Bottle TOP PRN (08:49)
[2020-12-14 09:01] LABS: CHLORIDE,CL 107 mEq/L (98-106); SODIUM,NA 141 mEq/L (136-145)
--- NOTE | 2020-12-16 06:55 | DISCH ---
ADMISSION DIAGNOSES: 1. Hypokalemia. 2. Hypertension. 3. Schizophrenia. DISCHARGE DIAGNOSIS: 1. HYPOKALEMIA. 2. HYPERTENSION. 3. SCHIZOPHRENIA. HISTORY: The patient is a 70-year-old male with known schizophrenia who was brought in by EMS after being called by Law Enforcement. The patient was out walking in the streets. He had not taken his evening medication for schizophrenia and he was brought to our facility when Fabi Tse saw him with an elevated blood pressure and hypokalemia. He was admitted for control of both. HOSPITAL COURSE: The patient was given IV and oral potassium replacement and that returned to a normal value within 24 hours. His blood pressures were in the 140s to 170 systolic. He was given metoprolol 25 mg b.i.d. and his last blood pressure was 147/71. His vitals have otherwise been fine. Clinically, he looks completely fine and back to his baseline. He is not having any signs of confusion. At this point, we are going to titrate his medicine as an outpatient. I did have a conversation with him at family request about assisted living to make sure medication management was happening and at this time patient is adamant against. I will have Home Health consult for medication monitoring, vital sign evaluation, and mental status monitoring as well. I will see him back in my office in 2 weeks time for mathew MILLER /[id number]
== END 2020-12-14 14:25 | disposition home or self-care (01) ==
LOC: CC.ED 01:31 → CC.MS 02:30 → UNDOADMOB 02:30 → CC.MS 02:58
PROVIDERS: ADMIT Physician Assistant Medical; ATTEND Family Medicine
DX: E87.6 Hypokalemia (principal); I10 Essential (primary) hypertension; F20.9 Schizophrenia, unspecified; E78.00 Pure hypercholesterolemia, unspecified; I25.2 Old myocardial infarction; R25.1 Tremor, unspecified; Z86.73 Personal history of transient ischemic attack (TIA), and cerebral infarction without residual deficits; Z79.899 Other long term (current) drug therapy
CPT/HCPCS: 36415; 80048; 80053; 80305-QW; 81001; 83735; 85025; 96372; 96374; 99285-25; A9270-GY; J1650; J3480

== ENCOUNTER 2022-12-15 11:36 | Inpatient (IN) | payer MEDICARE, MEDICAID ==
[2022-12-15] MEDS ORDERED: Sodium Chloride 0.9% 10 ML Syringe FLUSH PRN (11:52)
[2022-12-15] MEDS ORDERED: Sodium Chloride 0.9% 1,000 ML IV ONE ×2 (11:53→12:34)
[2022-12-15] MEDS ORDERED: Acetaminophen 325 MG Tab PO ONE (11:54)
[2022-12-15 12:10] LABS: BASOPHILS ABSOLUTE AUTO 0.01 10^3/uL (0.00-0.50); BASOPHILS PERCENT AUTO 0.1 % (0-1); HEMATOCRIT 41.2 % (42.0-52.0); HEMOGLOBIN 14.6 g/dL (14.0-18.0); IMMATURE GRAN ABSOLUTE AUTO 0.01 10^3/uL (0.00-0.49); IMMATURE GRAN PERCENT AUTO 0.1 % (0.0-4.9); LYMPHOCYTES PERCENT AUTO 3.1 % (24-44); MEAN CORPUSCULAR HEMOGLOBIN 32.1 pg (27.0-32.0); MEAN CORPUSCULAR HGB CONC 35.4 g/dL (32.0-36.0); MEAN CORPUSCULAR VOLUME 90.5 fL (83.0-97.0); MONOCYTES PERCENT AUTO 4.6 % (0-10); NEUTROPHILS ABSOLUTE AUTO 11.99 x10^3/uL (1.80-8.00); NEUTROPHILS PERCENT AUTO 92.1 % (41-71); PLATELET COUNT,PLT 147 10^3/uL (150-400); RED BLOOD CELL COUNT 4.55 x10^6/uL (4.50-6.00)
[2022-12-15 12:25] LABS: ALBUMIN 4.4 g/dL (3.4-5.0); BILIRUBIN TOTAL 1.4 mg/dL (0.0-1.0); CALCIUM 10.5 mg/dL (8.4-10.1); CREATININE 1.7 mg/dL (0.7-1.3); EST CRCL DRUG DOSING (CG) 39.96 mL/min; LACTIC ACID 3.7 mmol/L (0.4-2.0); MAGNESIUM 2.2 mg/dL (1.8-2.4); POTASSIUM,K 3.8 mEq/L (3.5-5.0); PROTEIN TOTAL,TP 7.8 g/dL (6.4-8.2)
[2022-12-15] MEDS ORDERED: Cefepime 2 GM in Sodium Chloride 0.9% 50 ML IV ONE (12:54)
[2022-12-15 13:23] LABS: APPEARANCE,URINE CLOUDY (CLEAR); BILIRUBIN,URINE SMALL (NEGATIVE); COLOR,URINE ORANGE (YELLOW); GLUCOSE,URINE NEGATIVE (NEGATIVE); KETONES,URINE 15 mg/dL (NEGATIVE); LEUKOCYTE ESTERASE,URINE NEGATIVE (NEGATIVE); NITRITE,URINE NEGATIVE (NEGATIVE); OCCULT BLOOD,URINE MODERATE (NEGATIVE); PH,URINE 5.5 (4.5-8.0); PROTEIN,URINE >=300 mg/dL (NEGATIVE); UROBILINOGEN,URINE 0.2 EU/dL (0.2-1.0)
[2022-12-15] MEDS ORDERED: Docusate Sodium 100 MG Cap PO PRN (13:51)
[2022-12-15] MEDS ORDERED: Polyethylene Glycol 3350 Powder 17 GM Packet PO PRN (13:51)
[2022-12-15] MEDS ORDERED: Acetaminophen 325 MG Tab PO PRN (13:51)
[2022-12-15] MEDS ORDERED: Ondansetron 4 MG/2 ML SDV IV PRN (13:51)
[2022-12-15 13:59] LABS: BACTERIA,URINE FEW /HPF (NOT SEEN); EPITHELIAL CELLS,URINE OCCASIONAL /HPF (NOT SEEN); MUCUS,URINE FEW /HPF (NOT SEEN)
[2022-12-15] MEDS ORDERED: Loratadine 10 MG Tab PO PRN (14:01)
[2022-12-15] MEDS ORDERED: VANCOmycin 1 GM/200 ML 1 GM in Premix Bag 1 BAG IV ONE (14:28)
[2022-12-15] MEDS: Sodium Chloride 0.9% 1,000 ML IV SCH ×2 (15:41→22:34)
[2022-12-15] MEDS ORDERED: HALOPERIDOL 5 MG PO SCH (20:00)
[2022-12-15] MEDS: Pramipexole 0.5 MG Tab PO SCH (20:04)
[2022-12-15] MEDS: PARoxetine 20 MG Tab PO SCH (20:05)
[2022-12-15] MEDS: Metoprolol Succinate 25 MG Tab.ER PO SCH (20:06)
[2022-12-15] MEDS: Mirtazapine 15 MG Tab PO SCH (20:06)
[2022-12-15] MEDS: Simvastatin 40 MG Tab PO SCH (20:07)
[2022-12-15] MEDS: MINERAL OIL EYERT SCH (20:09)
[2022-12-15] MEDS: PETROLATUM WHITE EYERT SCH (20:09)
[2022-12-15] MEDS: Cefepime 2 GM in Sodium Chloride 0.9% 100 ML IV SCH (23:25)
[2022-12-16] MEDS: Sodium Chloride 0.9% 1,000 ML IV SCH ×2 (05:18→12:57)
[2022-12-16] MEDS: Pantoprazole 40 MG Tab.CR PO SCH (06:17)
[2022-12-16 07:43] LABS: BASOPHILS ABSOLUTE AUTO 0.01 10^3/uL (0.00-0.50); BASOPHILS PERCENT AUTO 0.2 % (0-1); EOSINOPHILS ABSOLUTE AUTO 0.04 10^3/uL (0.00-1.50); EOSINOPHILS PERCENT AUTO 0.6 % (0-6); HEMOGLOBIN 11.3 g/dL (14.0-18.0); IMMATURE GRAN ABSOLUTE AUTO 0.01 10^3/uL (0.00-0.49); IMMATURE GRAN PERCENT AUTO 0.2 % (0.0-4.9); LYMPHOCYTES ABSOLUTE AUTO 0.75 10^3/uL (0.60-5.00); LYMPHOCYTES PERCENT AUTO 11.9 % (24-44); MEAN CORPUSCULAR HEMOGLOBIN 33.8 pg (27.0-32.0); MEAN CORPUSCULAR HGB CONC 35.3 g/dL (32.0-36.0); MEAN CORPUSCULAR VOLUME 95.8 fL (83.0-97.0); MONOCYTES PERCENT AUTO 6.3 % (0-10); NEUTROPHILS ABSOLUTE AUTO 5.11 x10^3/uL (1.80-8.00); NEUTROPHILS PERCENT AUTO 80.8 % (41-71); PLATELET COUNT,PLT 109 10^3/uL (150-400); RED BLOOD CELL COUNT 3.34 x10^6/uL (4.50-6.00); WHITE BLOOD CELL COUNT,WBC 6.3 10^3/uL (4.0-11.0)
[2022-12-16 07:44] LABS: BILIRUBIN TOTAL 0.7 mg/dL (0.0-1.0); CALCIUM 8.4 mg/dL (8.4-10.1); CREATININE 0.9 mg/dL (0.7-1.3); EST CRCL DRUG DOSING (CG) 75.48 mL/min; PROTEIN TOTAL,TP 5.4 g/dL (6.4-8.2)
[2022-12-16 07:53] LABS: POTASSIUM,K 4.3 mEq/L (3.5-5.0)
[2022-12-16] MEDS ORDERED: HALOPERIDOL 5 MG PO SCH (08:00)
[2022-12-16] MEDS: Polyethylene Glycol 3350 Powder 17 GM Packet PO SCH (08:13)
[2022-12-16] MEDS: Enoxaparin 40 MG/0.4 ML Syringe SUBCUT SCH (08:14)
[2022-12-16] MEDS: Pramipexole 0.5 MG Tab PO SCH ×2 (08:18→19:49)
[2022-12-16] MEDS: Metoprolol Succinate 25 MG Tab.ER PO SCH ×2 (08:19→19:49)
[2022-12-16] MEDS: Donepezil 5 MG Tab PO SCH (08:19)
[2022-12-16] MEDS: Multivitamin Tab PO SCH (08:19)
[2022-12-16] MEDS: MINERAL OIL EYERT SCH ×2 (08:20→19:52)
[2022-12-16] MEDS: PETROLATUM WHITE EYERT SCH ×2 (08:20→19:52)
[2022-12-16] MEDS ORDERED: VANCOmycin 1 GM/200 ML 1 GM in Premix Bag 1 BAG IV ONE (10:45)
[2022-12-16] MEDS ORDERED: Iopamidol 755 Mg/ML 100 ML Bottle IVPUSH ONE (11:09)
[2022-12-16] MEDS ORDERED: VANCOmycin 1 GM/200 ML 1 GM in Premix Bag 1 BAG IV SCH ×2 (12:00→20:00)
[2022-12-16] MEDS: Cefepime 2 GM in Sodium Chloride 0.9% 100 ML IV SCH (12:52)
[2022-12-16] MEDS: PARoxetine 20 MG Tab PO SCH (19:48)
[2022-12-16] MEDS: Simvastatin 40 MG Tab PO SCH (19:49)
[2022-12-16] MEDS: Mirtazapine 15 MG Tab PO SCH (19:50)
[2022-12-16] MEDS ORDERED: Haloperidol 5 MG Tab PO SCH (20:00)
[2022-12-17] MEDS: Pantoprazole 40 MG Tab.CR PO SCH (06:47)
[2022-12-17] MEDS: Multivitamin Tab PO SCH (07:44)
[2022-12-17] MEDS: Pramipexole 0.5 MG Tab PO SCH (07:44)
[2022-12-17] MEDS: Donepezil 5 MG Tab PO SCH (07:44)
[2022-12-17] MEDS: Polyethylene Glycol 3350 Powder 17 GM Packet PO SCH (07:44)
[2022-12-17 07:45] LABS: ALBUMIN 3.2 g/dL (3.4-5.0); BILIRUBIN TOTAL 0.7 mg/dL (0.0-1.0); CALCIUM 8.7 mg/dL (8.4-10.1); CREATININE 0.9 mg/dL (0.7-1.3); EST CRCL DRUG DOSING (CG) 75.48 mL/min; POTASSIUM,K 3.9 mEq/L (3.5-5.0)
[2022-12-17] MEDS: Metoprolol Succinate 25 MG Tab.ER PO SCH (07:45)
[2022-12-17] MEDS: Enoxaparin 40 MG/0.4 ML Syringe SUBCUT SCH (07:46)
[2022-12-17] MEDS ORDERED: Haloperidol 5 MG Tab PO SCH (08:00)
[2022-12-17 08:13] LABS: BASOPHILS ABSOLUTE AUTO 0.02 10^3/uL (0.00-0.50); BASOPHILS PERCENT AUTO 0.4 % (0-1); HEMATOCRIT 32.5 % (42.0-52.0); HEMOGLOBIN 11.2 g/dL (14.0-18.0); LYMPHOCYTES PERCENT AUTO 17.6 % (24-44); MEAN CORPUSCULAR HEMOGLOBIN 32.2 pg (27.0-32.0); MEAN CORPUSCULAR HGB CONC 34.5 g/dL (32.0-36.0); MEAN CORPUSCULAR VOLUME 93.4 fL (83.0-97.0); MONOCYTES ABSOLUTE AUTO 0.36 10^3/uL (0.00-1.50); NEUTROPHILS ABSOLUTE AUTO 3.74 x10^3/uL (1.80-8.00); PLATELET COUNT,PLT 90 10^3/uL (150-400); RED BLOOD CELL COUNT 3.48 x10^6/uL (4.50-6.00); WHITE BLOOD CELL COUNT,WBC 5.1 10^3/uL (4.0-11.0)
== END 2022-12-17 09:05 | disposition home or self-care (01) | DRG 872 ==
LOC: CC.ED 11:36 → UNDOADMIN 12:58 → CC.MS 12:58
PROVIDERS: ADMIT Nurse Practitioner Family; ATTEND Nurse Practitioner Family
DX: A41.9 Sepsis, unspecified organism (principal); G20 Parkinson's disease; I10 Essential (primary) hypertension; E78.5 Hyperlipidemia, unspecified; F03.90 Unspecified dementia, unspecified severity, without behavioral disturbance, psychotic disturbance, mood disturbance, and anxiety; Z66 Do not resuscitate; F20.9 Schizophrenia, unspecified; E78.00 Pure hypercholesterolemia, unspecified; F39 Unspecified mood [affective] disorder; K74.60 Unspecified cirrhosis of liver; K21.9 Gastro-esophageal reflux disease without esophagitis; Z20.822 Contact with and (suspected) exposure to COVID-19; R79.89 Other specified abnormal findings of blood chemistry; N28.9 Disorder of kidney and ureter, unspecified; B34.9 Viral infection, unspecified; Z87.820 Personal history of traumatic brain injury; Z91.048 Other nonmedicinal substance allergy status; Z79.899 Other long term (current) drug therapy; I25.2 Old myocardial infarction; Z90.49 Acquired absence of other specified parts of digestive tract
CPT/HCPCS: 36415; 51702; 71045; 74178; 80053; 80202; 81001; 83605; 83735; 84484; 85025; 87040; 87804; 87807; 93005; 93010; 96361; 96365; 97161-GP; 99223; 99233; 99239; 99285-25; A9270-GY; J0692; J1650; J3370; J3490; J7030; Q9967; U0002

== ENCOUNTER 2023-01-15 14:35 | Emergency (ER) | payer MEDICARE, MEDICAID ==
[2023-01-15 14:56] LABS: BASOPHILS ABSOLUTE AUTO 0.02 10^3/uL (0.00-0.50); BASOPHILS PERCENT AUTO 0.3 % (0-1); EOSINOPHILS ABSOLUTE AUTO 0.01 10^3/uL (0.00-1.50); EOSINOPHILS PERCENT AUTO 0.1 % (0-6); HEMATOCRIT 40.4 % (42.0-52.0); HEMOGLOBIN 13.9 g/dL (14.0-18.0); IMMATURE GRAN ABSOLUTE AUTO 0.01 10^3/uL (0.00-0.49); IMMATURE GRAN PERCENT AUTO 0.1 % (0.0-4.9); LYMPHOCYTES ABSOLUTE AUTO 0.43 10^3/uL (0.60-5.00); LYMPHOCYTES PERCENT AUTO 5.8 % (24-44); MEAN CORPUSCULAR HGB CONC 34.4 g/dL (32.0-36.0); MEAN CORPUSCULAR VOLUME 92.9 fL (83.0-97.0); MONOCYTES ABSOLUTE AUTO 0.38 10^3/uL (0.00-1.50); MONOCYTES PERCENT AUTO 5.1 % (0-10); NEUTROPHILS ABSOLUTE AUTO 6.55 x10^3/uL (1.80-8.00); NEUTROPHILS PERCENT AUTO 88.6 % (41-71); PLATELET COUNT,PLT 169 10^3/uL (150-400); RED BLOOD CELL COUNT 4.35 x10^6/uL (4.50-6.00); WHITE BLOOD CELL COUNT,WBC 7.4 10^3/uL (4.0-11.0)
[2023-01-15 14:59] LABS: APPEARANCE,URINE CLEAR (CLEAR); BILIRUBIN,URINE NEGATIVE (NEGATIVE); COLOR,URINE YELLOW (YELLOW); GLUCOSE,URINE NEGATIVE (NEGATIVE); KETONES,URINE NEGATIVE (NEGATIVE); LEUKOCYTE ESTERASE,URINE NEGATIVE (NEGATIVE); NITRITE,URINE NEGATIVE (NEGATIVE); OCCULT BLOOD,URINE NEGATIVE (NEGATIVE); PH,URINE 5.5 (4.5-8.0); PROTEIN,URINE 30 mg/dL (NEGATIVE); UROBILINOGEN,URINE 0.2 EU/dL (0.2-1.0)
[2023-01-15 15:10] LABS: BACTERIA,URINE FEW /HPF (NOT SEEN); EPITHELIAL CELLS,URINE NOT SEEN /HPF (NOT SEEN); MUCUS,URINE FEW /HPF (NOT SEEN); RBC,URINE NOT SEEN /HPF (0-5); WBC,URINE 0-5 /HPF (0-5)
[2023-01-15 15:25] LABS: BILIRUBIN TOTAL 0.6 mg/dL (0.0-1.0); C-REACTIVE PROTEIN 1.07 mg/dL (<=0.30); CALCIUM 10.1 mg/dL (8.4-10.1); CREATININE 1.3 mg/dL (0.7-1.3); EST CRCL DRUG DOSING (CG) 52.25 mL/min; MAGNESIUM 2.1 mg/dL (1.8-2.4); POTASSIUM,K 4.2 mEq/L (3.5-5.0); PROTEIN TOTAL,TP 7.6 g/dL (6.4-8.2)
== END 2023-01-15 16:35 | disposition home or self-care (01) ==
LOC: CC.ED 14:35
DX: E86.0 Dehydration (principal); I25.2 Old myocardial infarction; E78.00 Pure hypercholesterolemia, unspecified; K21.9 Gastro-esophageal reflux disease without esophagitis; Z86.73 Personal history of transient ischemic attack (TIA), and cerebral infarction without residual deficits; Z79.899 Other long term (current) drug therapy; Z91.048 Other nonmedicinal substance allergy status
CPT/HCPCS: 36415; 80053; 81001; 83735; 85025; 86140; 99284

== ENCOUNTER 2023-01-19 16:53 | Emergency (ER) | payer MEDICARE, MEDICAID ==
[2023-01-19 17:07] LABS: BASOPHILS ABSOLUTE AUTO 0.01 10^3/uL (0.00-0.50); BASOPHILS PERCENT AUTO 0.1 % (0-1); EOSINOPHILS ABSOLUTE AUTO 0.01 10^3/uL (0.00-1.50); EOSINOPHILS PERCENT AUTO 0.1 % (0-6); HEMATOCRIT 39.1 % (42.0-52.0); HEMOGLOBIN 13.3 g/dL (14.0-18.0); IMMATURE GRAN ABSOLUTE AUTO 0.01 10^3/uL (0.00-0.49); IMMATURE GRAN PERCENT AUTO 0.1 % (0.0-4.9); LYMPHOCYTES ABSOLUTE AUTO 0.47 10^3/uL (0.60-5.00); LYMPHOCYTES PERCENT AUTO 5.1 % (24-44); MEAN CORPUSCULAR HEMOGLOBIN 31.9 pg (27.0-32.0); MEAN CORPUSCULAR VOLUME 93.8 fL (83.0-97.0); MONOCYTES ABSOLUTE AUTO 0.52 10^3/uL (0.00-1.50); MONOCYTES PERCENT AUTO 5.6 % (0-10); NEUTROPHILS ABSOLUTE AUTO 8.22 x10^3/uL (1.80-8.00); PLATELET COUNT,PLT 149 10^3/uL (150-400); RED BLOOD CELL COUNT 4.17 x10^6/uL (4.50-6.00); WHITE BLOOD CELL COUNT,WBC 9.2 10^3/uL (4.0-11.0)
[2023-01-19 17:16] LABS: APPEARANCE,URINE CLEAR (CLEAR); COLOR,URINE YELLOW (YELLOW); GLUCOSE,URINE 100 mg/dL (NEGATIVE); KETONES,URINE TRACE mg/dL (NEGATIVE); LEUKOCYTE ESTERASE,URINE NEGATIVE (NEGATIVE); NITRITE,URINE NEGATIVE (NEGATIVE); OCCULT BLOOD,URINE NEGATIVE (NEGATIVE); PH,URINE 5.5 (4.5-8.0); PROTEIN,URINE 100 mg/dL (NEGATIVE); UROBILINOGEN,URINE 0.2 EU/dL (0.2-1.0)
[2023-01-19 17:18] LABS: BILIRUBIN,URINE NEGATIVE (NEGATIVE); RBC,URINE NOT SEEN /HPF (0-5); WBC,URINE NOT SEEN /HPF (0-5)
[2023-01-19 17:23] LABS: ALBUMIN 3.8 g/dL (3.4-5.0); BILIRUBIN TOTAL 0.7 mg/dL (0.0-1.0); C-REACTIVE PROTEIN 1.65 mg/dL (<=0.30); CALCIUM 9.8 mg/dL (8.4-10.1); CREATININE 1.1 mg/dL (0.7-1.3); EST CRCL DRUG DOSING (CG) 63.7 mL/min; MAGNESIUM 2.3 mg/dL (1.8-2.4); PROTEIN TOTAL,TP 7.4 g/dL (6.4-8.2)
== END 2023-01-19 18:00 | disposition home or self-care (01) ==
LOC: CC.ED 16:53
DX: E86.0 Dehydration (principal); R61 Generalized hyperhidrosis; I10 Essential (primary) hypertension; K21.9 Gastro-esophageal reflux disease without esophagitis; Z86.73 Personal history of transient ischemic attack (TIA), and cerebral infarction without residual deficits; Z91.048 Other nonmedicinal substance allergy status; Z79.899 Other long term (current) drug therapy
CPT/HCPCS: 36415; 71045; 80053; 81001; 83605; 83735; 84484; 85025; 86140; 93005; 93010; 99284